=== PATIENT | female | born 1985 | race Caucasian/White ===

== ENCOUNTER 2016-11-17 00:30 | Emergency (ER) | payer SELFPAY ==
[2016-11-17] MEDS ORDERED: Sodium Chloride 0.9% 1,000 ML ONE (01:01)
[2016-11-17 01:15] LABS: #Basophils 0.1 thou/uL (0.0-0.2); #Lymphocytes 2.2 thou/uL (1.20-3.40); #Monocytes 1.9 thou/uL (0.11-0.59); #Neutrophils 10.6 thou/uL (1.40-6.50); %Basophils 0.8 % (0.0-1.0); %Eosinophils 0.3 % (0.0-10.0); %Lymphocytes 14.8 % (21.0-51.0); %Monocytes 12.7 % (0.0-10.0); Hematocrit 38.6 % (36.0-47.0); Mean Platelet Volume 8.9 fL (7.4-10.4); Red Blood Cell (RBC) Count 4.23 mill/uL (4.20-5.40); White Blood Cell (WBC) Count 14.9 thou/uL (4.8-10.8)
[2016-11-17 01:18] LABS: Bilirubin Negative (Negative); Blood, Urine Trace (Negative); Glucose, Urine (Dipstick) Negative (Negative); Ketone, Urine Negative (Negative); Methadone Not Detected (NotDetected); Methamphetamine Detected (NotDetected); Nitrite Negative (Negative); Protein, Urine (Dipstick) Negative (Neg-Trace); Urobilinogen 0.2 mg/dL (0.2-1.0)
[2016-11-17 01:21] LABS: Bacteria/HPF 1+ HPF (None Seen); RBC/HPF 0-3 HPF (0-3); Squamous Epithelial 0-3 HPF (0-3)
[2016-11-17 01:28] LABS: ALT (SGPT) Less than 6 U/L (0-55); AST (SGOT) 13 U/L (5-34); Alkaline Phosphatase 77 U/L (40-150); Anion Gap 13 mmol/L (10-20); BUN (Urea Nitrogen) 7 mg/dL (7.0-18.7); Bilirubin, Total 0.3 mg/dL (0.2-1.2); CK (CPK) 59 U/L (29-168); Calc. Creatinine Clearance 0 mL/min (70-130); Carbon Dioxide 28 mmol/L (22-29); Chloride 97 mmol/L (98-107); Estimated GFR-MDRD 81; Protein, Total 6.9 g/dL (6.0-8.3)
[2016-11-17 01:29] LABS: Acetaminophen Less than 3.0 mcg/mL (10.0-30.0); Salicylate Less than 5.0 mg/dL (15.0-30.0)
== END 2016-11-17 02:11 | disposition home or self-care (01) ==
LOC: NAV ERS 00:30
DX: F15.10 Other stimulant abuse, uncomplicated (principal); N39.0 Urinary tract infection, site not specified; F17.210 Nicotine dependence, cigarettes, uncomplicated; Z79.899 Other long term (current) drug therapy
CPT/HCPCS: 80053; 80306; 80307; 81003; 81015; 81025; 82550; 84443; 85025; 93005; 96360; J7050

== ENCOUNTER 2018-02-09 08:08 | Emergency (ER) | payer SELFPAY | END 2018-02-09 08:51 | disposition home or self-care (01) | LOC: NAV ERS 08:08 | DX: J30.81 Allergic rhinitis due to animal (cat) (dog) hair and dander (principal); L28.0 Lichen simplex chronicus; F17.210 Nicotine dependence, cigarettes, uncomplicated; Z79.899 Other long term (current) drug therapy | CPT/HCPCS: 99283 ==

== ENCOUNTER 2019-04-22 23:10 | Emergency (ER) | payer SELFPAY ==
[2019-04-22] MEDS ORDERED: Ibuprofen 200 MG TAB ONE (23:22)
== END 2019-04-22 23:15 | disposition home or self-care (01) ==
LOC: NAV ERS 23:10
DX: S90.511A Abrasion, right ankle, initial encounter (principal); F10.120 Alcohol abuse with intoxication, uncomplicated; J45.909 Unspecified asthma, uncomplicated; F17.210 Nicotine dependence, cigarettes, uncomplicated; Y08.89XA Assault by other specified means, initial encounter
CPT/HCPCS: 99282

== ENCOUNTER 2020-05-26 15:30 | Emergency (ER) | payer SELFPAY ==
[2020-05-26] MEDS ORDERED: Morphine 4 MG/ML VIAL ONE ×3 (15:59→18:31)
[2020-05-26] MEDS ORDERED: Ondansetron PF 4 MG/2 ML Vial ONE (15:59)
[2020-05-26 16:21] LABS: #Basophils 0.1 thou/uL (0.0-0.2); #Eosinphils 0.1 thou/uL (0.0-0.7); #Lymphocytes 2.6 thou/uL (1.20-3.40); #Monocytes 0.4 thou/uL (0.11-0.59); #Neutrophils 4.4 thou/uL (1.40-6.50); %Basophils 0.9 % (0.0-1.0); %Eosinophils 1.5 % (0.0-10.0); %Lymphocytes 33.9 % (21.0-51.0); %Monocytes 5.7 % (0.0-10.0); Hemoglobin 13.9 g/dL (12.0-16.0); Mean Corpuscular HGB CONC 31.5 g/dL (32.0-36.0); Mean Corpuscular Hemoglobin 30.2 pg (27.0-31.0); Mean Corpuscular Volume 95.7 fL (78.0-98.0); Mean Platelet Volume 11.7 fL (7.4-10.4); Platelet Count 242 thou/uL (130-400); RBC Distribution Width 10.8 % (11.5-14.5); Red Blood Cell (RBC) Count 4.61 mill/uL (4.20-5.40); White Blood Cell (WBC) Count 7.6 thou/uL (4.8-10.8)
[2020-05-26] MEDS ORDERED: Boostrix 0.5 ML VIAL ONE (16:26)
[2020-05-26 16:37] LABS: ALT (SGPT) 7 U/L (8-55); AST (SGOT) 16 U/L (5-34); Albumin 4.2 g/dL (3.5-5.0); Alkaline Phosphatase 66 U/L (40-110); Anion Gap 15 mmol/L (10-20); BUN (Urea Nitrogen) 7 mg/dL (7.0-18.7); Bilirubin, Total 0.3 mg/dL (0.2-1.2); Calc. Creatinine Clearance 0 mL/min (70-130); Carbon Dioxide 23 mmol/L (22-29); Chloride 104 mmol/L (98-107); Estimated GFR-MDRD 78; Globulin 2.5 g/dL (2.4-3.5); Glucose 120 mg/dL (70-105); Potassium 3.5 mmol/L (3.5-5.1); Protein, Total 6.7 g/dL (6.0-8.3); Sodium 138 mmol/L (136-145)
[2020-05-26 16:43] LABS: BHCG - Serum Negative (NEGATIVE); Pregs Control Bar Appear? YES (CONTROL BAR)
--- NOTE | 2020-05-26 17:19 | CT ---
Head CT without contrast 05/26/2020: Comparison: None HISTORY: Pain TECHNIQUE: Axial CT imaging at 5 mm intervals from vertex through skull base without contrast. Rodriguez l and sagittal reformatted imaging obtained FINDINGS: There is mild mucosal thickening involving the sphenoid sinuses. No displaced calvarial fra cture. No intracranial hemorrhage, midline shift, mass effect, or ventricular enlargement. No displaced calvarial fracture IMPRESSION: No intracranial hemorrhage or displaced calvarial fracture.
--- NOTE | 2020-05-26 17:25 | CT ---
CT of thecervical spine: 05/26/2020 COMPARISON:None available HISTORY:Pain TECHNIQUE: Serial axial CT imaging at2.5 mm intervals from theskull base through lung apices without contrast. Coronal and sagittal reformatted imaging obtained Findings:The C1 ring is intact. There are degenerative changes at the atlantoaxial interspace. No acu te findings are seen involving the craniocervical junction, atlantoaxial interspace, dens, occipital condyles, C1-2 articulation, or cervicothoracic junction. Straightening of normal cervical lordosis noted with no significant anterolisthesis or retrolisthesis. No prevertebral soft tissue swelling. Right thyroid nodule suspected measuring approximately 2.2 cm. Imaged lung apices unremarkable. No acute fracture or dislocation. Impression:Right thyroid nodule for which dedicated follow-up thyroid ultrasound advised. No acute fr acture or dislocation of the cervical spine. CODE T
--- NOTE | 2020-05-26 17:28 | RAD ---
Left foot 3 views: 05/26/2020 COMPARISON: None HISTORY: Trauma, pain FINDINGS: The first metatarsal-phalangeal joint is dislocated. The first proximal phalanx is displace d lateral and dorsal to the head of the first metatarsal. A nondisplaced transverse fracture is suspected at the base of the third metatarsal. On image 2 of 3 there is mild linear lucency at the base of the second metatarsal which could represent nondisplaced fracture or artifact. IMPRESSION: Dislocation of the first metatarsal-phalangeal joint. Fracture at the base of the third m etatarsal, and possibly the second metatarsal as detailed above. Recommend orthopedic consultation.
[2020-05-26] MEDS ORDERED: Dextrose 5 %-0.45 % NaCl 1,000 ML ONE (18:37)
[2020-05-26] MEDS ORDERED: Sodium Chloride 0.9% 100 ML ONE (18:37)
[2020-05-26] MEDS ORDERED: CEFAZOLIN 1 GM VIAL ONE (18:37)
[2020-05-26 19:51] LABS: Bilirubin Negative (Negative); Blood, Urine Moderate (Negative); Clarity Clear (Clear); Glucose, Urine (Dipstick) Negative (Negative); Ketone, Urine Negative (Negative); Leukocyte Negative (Negative); Nitrite Negative (Negative); Protein, Urine (Dipstick) Negative (Neg-Trace); Urobilinogen 0.2 mg/dL (Less than 2); pH, Urine 5.5 (5.0-9.0)
[2020-05-26 19:52] LABS: Specific Gravity, Urine 1.024 (1.002-1.036)
[2020-05-26 19:59] LABS: Cocaine Metabolite Screen Not Detected (NotDetected); Methamphetamine Not Detected (NotDetected); Opiate Screen Detected (NotDetected); Phencyclidine (PCP) Not Detected (NotDetected); THC/Cannabinoid Screen Not Detected (NotDetected)
[2020-05-26 20:00] LABS: Amphetamine Not Detected (NotDetected); Barbiturates Screen Not Detected (NotDetected); Benzodiazepine Screen Not Detected (NotDetected); Medtox Control Line Valid? VALID (VALID); Methadone Not Detected (NotDetected); Oxycodone Screen Not Detected (NotDetected); Tricyclic Screen Not Detected (NotDetected)
[2020-05-26 20:02] LABS: Bacteria/HPF None Seen HPF (None Seen); Squamous Epithelial 0-3 HPF (0-3); WBC/HPF 0-3 HPF (0-3)
== END 2020-05-26 19:10 | disposition short-term general hospital (02) ==
LOC: NAV ERS 15:30
DX: R55 Syncope and collapse (principal); S92.332A Displaced fracture of third metatarsal bone, left foot, initial encounter for closed fracture; E04.1 Nontoxic single thyroid nodule; F17.210 Nicotine dependence, cigarettes, uncomplicated; Z79.899 Other long term (current) drug therapy; X58.XXXA Exposure to other specified factors, initial encounter
CPT/HCPCS: 70450; 72125; 80053; 80306; 81003; 81015; 84484; 84703; 85025; 90471; 90715; 93005; 96361; 96365; 96375; 96376; J0690; J2270; J2405; J3490; J7042

== ENCOUNTER 2021-03-13 07:57 | Emergency (ER) | payer SELFPAY | END 2021-03-13 10:53 | disposition home or self-care (01) | LOC: NAV ERS 07:57 | DX: S00.93XA Contusion of unspecified part of head, initial encounter (principal); J45.909 Unspecified asthma, uncomplicated; F17.210 Nicotine dependence, cigarettes, uncomplicated; Y04.2XXA Assault by strike against or bumped into by another person, initial encounter | CPT/HCPCS: 99284 ==

== ENCOUNTER 2022-01-22 02:45 | Emergency (ER) | payer OTHER, SELFPAY | END 2022-01-22 04:00 | disposition short-term general hospital (02) | LOC: NAV ERS 02:45 | DX: O09.519 Supervision of elderly primigravida, unspecified trimester (principal); O99.891 Other specified diseases and conditions complicating pregnancy; R10.9 Unspecified abdominal pain; O99.519 Diseases of the respiratory system complicating pregnancy, unspecified trimester; J45.909 Unspecified asthma, uncomplicated; O99.330 Smoking (tobacco) complicating pregnancy, unspecified trimester; F17.210 Nicotine dependence, cigarettes, uncomplicated; Z3A.00 Weeks of gestation of pregnancy not specified | CPT/HCPCS: 99284 ==

== ENCOUNTER 2022-02-03 22:50 | Emergency (ER) | payer OTHER ==
[2022-02-03 23:57] LABS: #Basophils 0.1 thou/uL (0.0-0.2); #Eosinphils 0.1 thou/uL (0.0-0.7); #Lymphocytes 2.9 thou/uL (1.20-3.40); #Monocytes 0.6 thou/uL (0.11-0.59); #Neutrophils 9.5 thou/uL (1.40-6.50); %Basophils 0.6 % (0.0-1.0); %Lymphocytes 21.8 % (21.0-51.0); %Monocytes 4.6 % (0.0-10.0); %Neutrophils 72.1 % (42.0-75.0); Hemoglobin 9.3 g/dL (12.0-16.0); Mean Corpuscular HGB CONC 30.6 g/dL (32.0-36.0); Mean Corpuscular Volume 91.3 fL (78.0-98.0); Mean Platelet Volume 11.2 fL (7.4-10.4); Platelet Count 257 thou/uL (130-400); RBC Distribution Width 13.8 % (11.5-14.5); Red Blood Cell (RBC) Count 3.34 mill/uL (4.20-5.40); White Blood Cell (WBC) Count 13.1 thou/uL (4.8-10.8)
[2022-02-04 00:11] LABS: ALT (SGPT) 7 U/L (8-55); AST (SGOT) 19 U/L (5-34); Alkaline Phosphatase 216 U/L (40-110); Anion Gap 15 mmol/L (10-20); BUN (Urea Nitrogen) 6 mg/dL (7.0-18.7); Bilirubin, Total 0.3 mg/dL (0.2-1.2); Calc. Creatinine Clearance 0 mL/min (70-130); Calcium 8.4 mg/dL (7.8-10.44); Carbon Dioxide 19 mmol/L (22-29); Chloride 105 mmol/L (98-107); Globulin 3.1 g/dL (2.4-3.5); Glucose 85 mg/dL (70-105); Potassium 3.8 mmol/L (3.5-5.1); Protein, Total 6.1 g/dL (6.0-8.3); Sodium 135 mmol/L (136-145)
[2022-02-04 02:02] LABS: SARS-CoV-2 NAA Rapid Test Not Detected (NotDetected)
== END 2022-02-03 23:35 | disposition short-term general hospital (02) ==
LOC: NAV ERS 22:50
DX: O99.891 Other specified diseases and conditions complicating pregnancy (principal); R10.2 Pelvic and perineal pain; O99.513 Diseases of the respiratory system complicating pregnancy, third trimester; J45.909 Unspecified asthma, uncomplicated; O99.333 Smoking (tobacco) complicating pregnancy, third trimester; F17.210 Nicotine dependence, cigarettes, uncomplicated; Z3A.39 39 weeks gestation of pregnancy; Z20.822 Contact with and (suspected) exposure to COVID-19
CPT/HCPCS: 80053; 85025; 86850; 86900; 86901; 99284; U0002

== ENCOUNTER 2022-05-03 22:09 | Emergency (ER) | payer OTHER ==
[2022-05-03] MEDS ORDERED: Amoxicillin/Potassium Clav 875 MG TAB ONE (22:35)
[2022-05-03] MEDS ORDERED: Ibuprofen 200 MG TAB ONE (22:35)
== END 2022-05-03 22:40 | disposition home or self-care (01) ==
LOC: NAV ERS 22:09
DX: K08.89 Other specified disorders of teeth and supporting structures (principal); F17.210 Nicotine dependence, cigarettes, uncomplicated
CPT/HCPCS: 99283

== ENCOUNTER 2022-09-17 11:50 | Emergency (ER) | payer OTHER | END 2022-09-17 13:08 | disposition home or self-care (01) | LOC: NAV ERS 11:50 | DX: K02.9 Dental caries, unspecified (principal); K04.7 Periapical abscess without sinus; F17.210 Nicotine dependence, cigarettes, uncomplicated; J45.909 Unspecified asthma, uncomplicated | CPT/HCPCS: 99283 ==